=== PATIENT | male | born 1960 | race Caucasian/White ===

== ENCOUNTER 2017-08-19 13:50 | Emergency (ER) | payer OTHER ==
[2017-08-19 13:57] VITALS: BP 143/90
[2017-08-19] MEDS ORDERED: PROPARACAINE 0.5% OPHTH DROPS 15 ML RIGHTEYE STA (15:06)
--- NOTE | 2017-08-19 15:16 | ED Physician Documentation ---
History of Present Illness - Stated complaint Stated Complaint: R SIDE HEAD PX - Chief complaint Chief Complaint: General - History obtained from History obtained from: Patient - History of Present Illness Timing: Other (About 12:30 developed ETIENNE R posterior rad to R eye with blurring and down neck and R arm. Its came on over about 10-15 minutes then went away and then got worse again. He has never had this before he is not a patient with migraines or any chronic headache issues.) Review of Systems Ten Systems: 10 systems reviewed and negative Constitutional: denies: Fever, Chills Ears: denies: Loss of hearing, Ear pain Nose: denies: Rhinorrhea / runny nose, Congestion Throat: denies: Sore throat PD PAST MEDICAL HISTORY - Past Medical History Past Medical History: Yes GI: Ulcerative colitis, Crohn's disease Psych: Depression - Past Surgical History Past Surgical History: Yes - Present Medications Home Medications: Ambulatory Orders Medication Instructions Recorded Confirmed Bupropion HCl [Wellbutrin] 150 mg PO BID 10/09/13 08/19/17 Mesalamine [Lialda] 800 gm PO BID 10/09/13 08/19/17 Cyclobenzaprine [Flexeril] 10 mg PO TID PRN #20 tablet 08/19/17 - Allergies Allergies/Adverse Reactions: Allergies Allergy/AdvReac Type Severity Reaction Status Date / Time Novacaine Allergy Emesis Uncoded 10/09/13 18:41 - Social History Does the pt smoke?: No Smoking Status: Never smoker Does the pt drink ETOH?: No Does the pt have substance abuse?: No - Immunizations Immunizations are current?: Yes Immunizations: TDAP current <10years - POLST Patient has POLST: No PD ED PE NORMAL - Vitals Vital signs reviewed: Yes - General General: Alert and oriented X 3, No acute distress - HEENT HEENT: PERRL, EOMI, Other (Tonopen 13 R) - Neck Neck: Supple, no meningeal sign, No bony TTP - Cardiac Cardiac: RRR, No murmur - Respiratory Respiratory: No respiratory distress, Clear bilaterally - Abdomen Abdomen: Soft, Non tender - Derm Derm: Normal color, Warm and dry - Neuro Neuro: Alert and oriented X 3, Normal speech Eye Opening: Spontaneous Motor: Obeys Commands Verbal: Oriented GCS Score: 15 - Psych Psych: Normal mood, Normal affect Results - Vitals Vitals: Vital Signs - 24 hr 08/19/17 13:52 Temperature 36.1 C L Heart Rate 80 Respiratory 16 Rate Blood Pressure 143/90 H O2 Saturation 96 Oxygen O2 Source Room air - Labs Labs: Laboratory Tests 08/19/17 08/19/17 08/19/17 15:31 15:31 15:31 WBC 6.3 RBC 5.18 Hgb 15.5 Hct 45.2 MCV 87.3 MCH 29.9 MCHC 34.3 RDW 13.2 Plt Count 289 MPV 7.5 Neut # 4.0 Lymph # 1.6 Deuel # 0.5 Eos # 0.1 Baso # 0.1 Absolute Nucleated RBC 0.00 Nucleated RBC % 0.0 PT 12.4 INR 1.1 Sodium 134 L Potassium 3.8 Chloride 100 L Carbon Dioxide 27 Anion Gap 7.0 BUN 19 Creatinine 0.9 Estimated GFR (MDRD) 87 L Glucose 98 Calcium 9.5 - Rads (name of study) CT Angio head/neck Radiology: Prelim report reviewed, See rad report PD MEDICAL DECISION MAKING - ED course ED course: 56-year-old gentleman with an acute onset right-sided headache, this is concerning for aneurysmal rupture or dissection as the pain radiates down the neck. As such CT angiography was pursued without either of these findings but did have significant stenotic vascular disease which was discussed with the patient in follow-up with neurology was advised. Departure - Departure Disposition: 01 Home, Self Care Clinical Impression: Headache Qualifiers: Headache type: unspecified Headache chronicity pattern: acute headache Intractability: not intractable Qualified Code(s): R51 - Headache Condition: Good Record reviewed to determine appropriate education?: Yes Instructions: ED Cephalgia Unspecified Prescriptions: Cyclobenzaprine [Flexeril] 10 mg PO TID PRN #20 tablet PRN Reason: Pain Comments: Take a baby aspirin daily. Followup with a neurologist, Malay phone is [phone] Return for new or worsening symptoms. Your blood pressure was elevated today on check into the emergency department. This does not mean that you have hypertension, it is a common phenomenon to come to the emergency department and have elevated blood pressure. I recommend that you see your primary care physician within the week to have it rechecked when you are feeling better.
[2017-08-19 15:48] LABS: BASOPHILS # (AUTO) 0.1 10^3/uL (0.0-0.1); BASOPHILS % (AUTO) 0.9 %; CALCIUM 9.5 mg/dL (8.5-10.3); CREATININE 0.9 mg/dL (0.6-1.2); EOSINOPHILS # (AUTO) 0.1 10^3/uL (0.0-0.7); EOSINOPHILS % (AUTO) 2.2 %; HGB - HEMOGLOBIN 15.5 g/dL (14.0-18.0); LYMPHOCYTES # (AUTO) 1.6 10^3/uL (1.5-3.5); LYMPHOCYTES % (AUTO) 24.9 %; MEAN CORPUSCULAR HEMOGLOBIN 29.9 pg (27.0-31.0); MEAN CORPUSCULAR HGB CONC 34.3 g/dL (32.0-36.0); MEAN CORPUSCULAR VOLUME 87.3 fL (80.0-94.0); MEAN PLATELET VOLUME 7.5 fL (7.4-11.4); MONOCYTES # (AUTO) 0.5 10^3/uL (0.0-1.0); MONOCYTES % (AUTO) 7.6 %; NEUTROPHILS % (AUTO) 64.4 %; PLT - PLATELET COUNT 289 10^3/uL (130-450); RED BLOOD COUNT 5.18 10^6/uL (4.70-6.10); RED CELL DISTRIBUTION WIDTH 13.2 % (12.0-15.0); WHITE BLOOD COUNT 6.3 x10^3/uL (4.8-10.8)
[2017-08-19 15:54] LABS: INR 1.1 (0.8-1.2); PT - PROTHROMBIN TIME 12.4 secs (9.9-12.6)
[2017-08-19] MEDS ORDERED: IOPAMIDOL-300 100 ML VIAL ONE (16:06)
[2017-08-19] MEDS ORDERED: IOPAMIDOL-300 100 ML VIAL IVP ONE (16:25)
--- NOTE | 2017-08-19 17:04 | CT Report ---
EXAM: CT ANGIOGRAM HEAD. CT SCAN OF THE HEAD WITHOUT AND WITH CONTRAST. EXAM DATE: 08/19/2017 04:25 PM CLINICAL HISTORY: Headache, R neck pain.. COMPARISON: MR brain 06/01/2006. TECHNIQUE: 1. CT Scan Head: Using a multidetector scanner, axial images were acquired from the foramen magnum to the skull vertex prior to and following contrast administration. 2. CT Angiogram: Using a multidetector scanner, high-resolution axial images were acquired from the s kull base through vertex following rapid infusion of intravenous contrast. Reformats: Multiplanar MIP reformats were reconstructed. Nascet criteria used for stenosis measurement. IV Contrast: 100 cc Isovue-300. In accordance with CT protocol optimization, one or more of the following dose reduction techniques w ere utilized for this exam: automated exposure control, adjustment of mA and/or KV based on patient s ize, or use of iterative reconstructive technique. FINDINGS: NON-CONTRAST HEAD: Parenchyma: No intraparenchymal hemorrhage. No evidence of mass, midline shift, or CT findings of inf arction. Bingham-white differentiation is distinct. Extraaxial Spaces: Normal for age. No subdural or epidural collections identified. Ventricles: Normal in size and position. Sinuses and orbits: Imaged paranasal sinuses, orbits, and mastoids show no significant abnormality. Bones: No evidence of fracture or calvarial defect. Other: None. POST-CONTRAST HEAD: No abnormal enhancement. CT ANGIOGRAM HEAD: Minimal atherosclerosis left carotid siphon, no hemodynamically significant stenosis. The carotid sip hons bilaterally are otherwise unremarkable. The visualized vertebral arteries bilaterally and the ba silar artery are unremarkable. The right MCA is unremarkable. The ACAs bilaterally are unremarkable. Approximately 20-30% stenosis proximal and mid M1 segment left MCA. The remaining left MCA is unremar kable. The right posterior communicating arteries not clearly visualized on either side, likely hypop lastic or aplastic. Approximately 30-40% stenosis of distal P1 segment left DECKHAND ENGINEER (series 11 image 78) The left [employer]ER is otherwise unremarkable. Approximately 60-70 % stenosis mid P2 segment right [employer]KH[employer] ENGINEER (seri es 14 image 95). DURAL VENOUS SINUSES AND MAJOR CENTRAL VEINS: Patent. IMPRESSION: 1. No CT evidence of acute intracranial abnormality, specifically no CT evidence of acute infarct, in tracranial hemorrhage, mass effect, midline shift, or hydrocephalus. 2. No abnormal enhancement of the postcontrast CT head. 3. Approximately 20-30% stenosis proximal and mid M1 segment left MCA. The remaining left MCA is unre markable. 4. Approximately 30-40% stenosis of distal P1 segment left DECKH[employer] ENGINEER (series 11 image 78) The left [employer] ENGINEER is o therwise unremarkable. 5. Approximately 60-70 % stenosis mid P2 segment right [employer]KH[employer]INEER (series 14 image 95). 6. The differential considerations for the above-described intracranial focal arterial stenoses inclu de atherosclerosis versus vasculitis. No evidence of old occlusion, dissection, aneurysm, or vascular malformation. [facility] Referring Provider Line: [phone] SITE ID: [id number]
--- NOTE | 2017-08-19 17:13 | CT Report ---
EXAM: CT ANGIOGRAM NECK EXAM DATE: 08/19/2017 04:25 PM. CLINICAL HISTORY: Headache, R neck pain. COMPARISON: None. TECHNIQUE: Routine axial helical imaging was performed from the skull base through the aortic arch. I V Contrast: Yes. 100 cc Isovue-300 Reconstructions: Routine multiplanar 3D MIP reconstructions. Evalu ation of arterial stenosis is based on a NASCET method of measurement. In accordance with CT protocol optimization, one or more of the following dose reduction techniques w ere utilized for this exam: automated exposure control, adjustment of mA and/or KV based on patient s ize, or use of iterative reconstructive technique. FINDINGS: Right Carotid: Mild atherosclerosis right carotid bifurcation and bulb, maximal stenosis 10-20%. The common carotid, internal carotid, and external carotid arteries are patent. No evidence of dissection . Left Carotid: Mild atherosclerosis left carotid bifurcation and bulb, maximal stenosis approximately 10%. The common carotid, internal carotid, and external carotid arteries are widely patent. No dissec tion, significant atherosclerotic plaque, or calcification identified. Vertebrals: The vertebral arteries are nearly codominant. The vertebrobasilar system shows no stenose s. Intracranial Circulation: Concurrently obtained CTA head is dictated separately. Other: The visualized lung apices demonstrate scattered groundglass densities, nonspecific, may repre sent subsegmental atelectasis versus mild alveolar pulmonary edema. Moderate multilevel degenerative spondylosis of the visualized spine, no acute fracture or malalignme nt. The visualized soft tissues of the neck demonstrate no acute abnormality. IMPRESSION: 1. Mild atherosclerosis carotid bifurcations involves bilaterally, maximal stenosis 10-20% on the rig ht than approximately 10% on the left, both mild by NASCET criteria . 2. No hemodynamically significant stenosis, dissection, occlusion, aneurysm or vascular formation wit hin extracranial arteries otherwise. 3. Concurrently obtained CTA of the head is dictated separately. Please see that dictation regarding intracranial arteries. [facility] Referring Provider Line: [phone] SITE ID: [id number]
== END 2017-08-19 17:37 | disposition home or self-care (01) ==
LOC: ED 13:50
DX: R51 Headache (principal); R03.0 Elevated blood-pressure reading, without diagnosis of hypertension
CPT/HCPCS: 36415; 70496; 70498; 80048; 85025; 85610; 99283; J3490; Q9967

== ENCOUNTER 2018-09-01 06:49 | Outpatient (CLI) | payer OTHER ==
--- NOTE | 2018-09-01 11:04 | XRAY Report ---
Reason: CHRONIC NECK PAIN Procedure Date: 09/01/2018 Accession Number: [id number] / [id number] Procedure: XR - Cervical Spine Complete CPT Code: FULL RESULT: EXAM: CERVICAL SPINE RADIOGRAPHY EXAM DATE: 09/01/2018 07:30 AM. CLINICAL HISTORY: CHRONIC NECK PAIN. COMPARISONS: None. TECHNIQUE: 5 views. FINDINGS: Alignment: Normal. No spondylolisthesis or scoliosis. Bones: The cervical vertebral bodies and posterior elements are well-visualized from the skull base through C7-T1. No fractures or bone lesions. Disks: C5-C6 osteophyte, mild displaced narrowing. C6-C7 osteophyte, moderate disk space narrowing. C7-T1 osteophyte, space narrowing Facets: No degenerative disease. Neural Foramina: The neural foramina have bony patency bilaterally. Soft Tissues: Normal. No prevertebral soft tissue swelling. The visualized lung apices are clear. IMPRESSION: Moderate DJD [facility]
== END 2018-09-01 06:50 | disposition home or self-care (01) ==
LOC: DI 06:49
PROVIDERS: ATTEND Family Medicine
DX: M47.9 Spondylosis, unspecified (principal)
CPT/HCPCS: 72050

== ENCOUNTER 2018-09-19 05:56 | Emergency (ER) | payer OTHER ==
[2018-09-19 06:08] VITALS: BP 142/89
--- NOTE | 2018-09-19 06:16 | ED Physician Documentation ---
PD HPI UPPER EXT INJURY - Stated complaint Stated Complaint: PALOMO HAND NUMBNESS,LT ARM PAIN - Chief complaint Chief Complaint: Ext Problem - History obtained from History obtained from: Patient - History of Present Illness Location: Both, Arm Type of injury: Other (None) Timing - onset: How many days ago (1) Timing - duration: Days Timing - details: Gradual onset Pain level max: 3 Pain level now: 3 Severity Comments: mild Worsened by: Moving Associated symptoms: Numbness, Tingling - Additonal information Additional information: 57-year-old male with history of cervical spine Degenerative disc disease Presents with bilateral hand and arm paresthesias worse on the left than the right.Patient states his symptoms have been present for several weeks but got worse over the last 2 days. Review of Systems Ten Systems: 10 systems reviewed and negative Constitutional: reports: Reviewed and negative Eyes: reports: Reviewed and negative Ears: reports: Reviewed and negative Nose: reports: Reviewed and negative Throat: reports: Reviewed and negative Cardiac: reports: Reviewed and negative Respiratory: reports: Reviewed and negative GI: reports: Reviewed and negative : reports: Reviewed and negative Skin: reports: Reviewed and negative Musculoskeletal: reports: Reviewed and negative Neurologic: reports: Reviewed and negative Psychiatric: reports: Reviewed and negative Endocrine: reports: Reviewed and negative Immunocompromised: reports: Reviewed and negative PD PAST MEDICAL HISTORY - Past Medical History GI: Ulcerative colitis, Crohn's disease Psych: Depression - Past Surgical History Past Surgical History: Yes Other past surgical history: Reviewed and not pertinent - Present Medications Home Medications: Ambulatory Orders Medication Instructions Recorded Confirmed Bupropion HCl [Wellbutrin] 150 mg PO BID 10/09/13 08/19/17 Mesalamine [Lialda] 800 gm PO BID 10/09/13 08/19/17 Cyclobenzaprine [Flexeril] 10 mg PO TID PRN #20 tablet 08/19/17 predniSONE [Prednisone] 60 mg PO DAILY #15 tablet 09/19/18 - Allergies Allergies/Adverse Reactions: Allergies Allergy/AdvReac Type Severity Reaction Status Date / Time Novacaine Allergy Emesis Uncoded 10/09/13 18:41 - Living Situation Living Situation: reports: With family Living Arrangement: reports: At home - Social History Does the pt smoke?: No Smoking Status: Never smoker Does the pt drink ETOH?: No Does the pt have substance abuse?: No - Family History Family history: reports: Other (Reviewed and not pertinent) - Immunizations Immunizations are current?: Yes Immunizations: TDAP current <10years - POLST Patient has POLST: No PD ED PE NORMAL - Vitals Vital signs reviewed: Yes - General General: Alert and oriented X 3, No acute distress - HEENT HEENT: PERRL - Neck Neck: Supple, no meningeal sign, Other (No spinal tenderness to palpation. Negative Spurling test bilaterally.) - Cardiac Cardiac: RRR, No murmur - Respiratory Respiratory: Clear bilaterally - Abdomen Abdomen: Normal bowel sounds, Soft, Non tender, Non distended - Derm Derm: Warm and dry - Extremities Extremities: No deformity, Other (Neurovascularly intact in the radial, ulnar, median nerve distribution. Lateral arm sensation is intact and symmetric.) - Neuro Neuro: Alert and oriented X 3 - Psych Psych: Normal mood, Normal affect Results - Vitals Vitals: Vital Signs - 24 hr 09/19/18 09/19/18 06:03 06:09 Temperature 36.3 C L 36.3 C L Heart Rate 67 64 Respiratory 18 Rate Blood Pressure 142/89 H 142/89 H O2 Saturation 100 100 Oxygen O2 Source Room air PD MEDICAL DECISION MAKING - ED course Complexity details: re-evaluated patient, considered differential, d/w patient ED course: 57-year-old male with history of chronic neck pain presents with arm paresthesias left greater than right. Patient with unremarkable exam. History is consistent with cervical radiculopathy. Patient offered daytime MRI but prefers to follow-up with PCP for elective outpatient MRI.Patient discharged with prednisone burst for symptom control. Return precautions were reviewed specifically sudden worsening of function in the upper extremities. Departure - Departure Disposition: 01 Home, Self Care Clinical Impression: Cervical radiculopathy, Paresthesias in left hand Instructions: ED Cervical Radiculopathy, ED Paraesthesias Follow-Up: Charanjit Harkins MD [Primary Care Provider] - Prescriptions: predniSONE [Prednisone] 60 mg PO DAILY #15 tablet Comments: Follow-up with PCP regarding cervical Spine MRI. Take prednisone as prescribed. Return with worsening symptoms.
== END 2018-09-19 06:18 | disposition home or self-care (01) ==
LOC: ED 05:56
DX: M50.10 Cervical disc disorder with radiculopathy, unspecified cervical region (principal); R20.2 Paresthesia of skin; G89.29 Other chronic pain
CPT/HCPCS: 99283

== ENCOUNTER 2020-07-08 23:00 | Outpatient (CLI) | payer OTHER | END 2020-07-08 23:01 | disposition home or self-care (01) | LOC: COV 23:00 | PROVIDERS: ATTEND Family Medicine | DX: Z20.828 Contact with and (suspected) exposure to other viral communicable diseases (principal) ==

== ENCOUNTER 2021-05-02 10:54 | Outpatient (CLI) | payer OTHER ==
--- NOTE | 2021-05-02 16:15 | XRAY Report ---
PROCEDURE: Lumbar Spine Complete INDICATIONS: LOW BACK PAIN/ UNSPECIFIED FX OF 4TH AND 5TH LUMBAR VERTEBRA TECHNIQUE: 5 views of the lumbar spine were acquired. COMPARISON: None. FINDINGS: Bones: 5 [id number] vertebrae are present. There is normal bony alignment. Degenerative endpla te changes and bilateral facet arthrosis throughout lumbar spine is seen more prominent at L3-4 and L 4-5 levels. Oblique views shows no pars defects. Bilateral bony foraminal stenosis at L3-4 and L4-5 l evels are likely present. No vertebral body compression fractures. No suspicious bony lesions. Soft tissues: Overlying bowel gas pattern is normal. No suspicious soft tissue calcifications. IMPRESSION: 1. Degenerative disc disease in throughout lumbar spine more prominent at L3-4 and L4-5 levels with s uggestion of bilateral bony foraminal stenosis seen on oblique views. No gross pars defects. No acute compression fracture or spondylolisthesis. Reviewed by: Olayinka Gold MD on 05/02/2021 4:14 PM PDT Approved by: Olayinka Gold MD on 05/02/2021 4:14 PM PDT Station ID: [id number]
== END 2021-05-02 10:55 | disposition home or self-care (01) ==
LOC: DI.N 10:54
PROVIDERS: ATTEND Family Medicine
DX: G57.02 Lesion of sciatic nerve, left lower limb (principal); S32.049S Unspecified fracture of fourth lumbar vertebra, sequela; S32.059S Unspecified fracture of fifth lumbar vertebra, sequela; M47.816 Spondylosis without myelopathy or radiculopathy, lumbar region; M51.36 Other intervertebral disc degeneration, lumbar region; M48.061 Spinal stenosis, lumbar region without neurogenic claudication

== ENCOUNTER 2022-02-03 11:08 | Outpatient (CLI) | payer OTHER ==
[2022-02-03 14:36] LABS: ALBUMIN 4.5 g/dL (3.2-5.5); ALBUMIN/GLOBULIN RATIO 1.7 (1.0-2.2); ALKALINE PHOSPHATASE 100 IU/L (42-121); ALT ALANINE AMINOTRANSFERASE 29 IU/L (10-60); AST ASPARTATE AMINOTRANSFERASE 21 IU/L (10-42); BILIRUBIN,TOTAL 2.4 mg/dL (0.2-1.0); BUN - BLOOD UREA NITROGEN 21 mg/dL (6-20); CALCIUM 9.5 mg/dL (8.5-10.3); CARBON DIOXIDE - CO2 27 mmol/L (21-32); CHLORIDE 101 mmol/L (101-111); CHOLESTEROL 159 mg/dL; CREATININE 1.1 mg/dL (0.6-1.2); GFR - MDRD 68 (>89); GLUCOSE 90 mg/dL (70-100); HDL CHOLESTEROL 32 mg/dL; LDL CHOLESTEROL,CALCULATED 110 mg/dL; LDL/HDL RATIO 3.4 (<3.6); POTASSIUM 4.3 mmol/L (3.5-5.0); SODIUM 136 mmol/L (135-145); TOTAL PROTEIN 7.1 g/dL (6.7-8.2); TRIGLYCERIDES 83 mg/dL; VLDL CHOLESTEROL 17 mg/dL
== END 2022-02-03 11:09 | disposition home or self-care (01) ==
LOC: LAB.S 11:08
PROVIDERS: ATTEND Family Medicine
DX: R97.20 Elevated prostate specific antigen [PSA] (principal); I10 Essential (primary) hypertension; Z13.6 Encounter for screening for cardiovascular disorders
CPT/HCPCS: 36415; 80053; 80061; 83721; 84153